=== PATIENT | female | born 1995 | race Two or more races ===

== ENCOUNTER 2023-02-17 06:21 | Inpatient (IN) | payer MEDICAID ==
[~2023-02-17] VITALS: Ht 160 cm; Wt 55.9 kg
[~2023-02-17 06:21] MED LIST: INSLANTI SC; INSLISPI SC
[2023-02-17] MEDS ORDERED: InsuLIN REG 1unit/0.01ml Soln (100units/ml) IV ONE (06:45)
[2023-02-17] MEDS ORDERED: SODIUM CHLORIDE 0.9% 2,000 ML IV ONE (06:45)
[2023-02-17 07:29] LABS: Hematocrit 36.9 % (36.0-46.0)
[2023-02-17 07:31] LABS: Hemoglobin 10.4 g/dL (12.2-16.2); Mean Corpuscular Hemoglobin 20.6 pg (28.0-32.0); Mean Corpuscular Hgb Conc. 28.3 g/dL (32.0-36.0); Red Blood Cells 5.06 10^6/uL (4.0-5.20); Red Cell Distribution Width 19.5 % (11.8-14.3); White Blood Cell 25.5 10^3/uL (4.4-10.8)
[2023-02-17 07:34] LABS: Band Neutrophils % (manual) 0; Basophils % (manual) 0 (0.0-2.0); Blast Cells 0; Eosinophils % (manual) 0 (0-7); Metamyelocytes % 0; Myelocytes % 0; Promyelocytes % 0; Reactive Lymphocytes 0
[2023-02-17 07:48] LABS: Alanine Aminotransferase 15 U/L (7-40); Alkaline Phosphatase 111 U/L (46-116); Anion Gap 27.00001 (5-15); Aspartate Aminotransferase 21 U/L (13-40); BUN/Creatinine Ratio 21.6 (10.0-20.0); Bilirubin, Total 0.3 mg/dL (0.2-1.0); Blood Urea Nitrogen 29 mg/dL (9-23); Calcium 10.6 mg/dL (8.5-10.1); Chloride 100 mmol/L (98-107); Potassium 4.8 mmol/L (3.5-5.1); Sodium 137 mmol/L (136-145); Total Protein 8.2 g/dL (5.7-8.2)
[2023-02-17 07:57] LABS: Carbon Dioxide < 10 mmol/L (20-30); Glucose 628 mg/dL (74-106)
[2023-02-17] MEDS: SODIUM CHLORIDE 0.9% 1,000 ML IV SCH ×7 (08:30→21:10)
[2023-02-17] MEDS: INSULIN DRIP 100 UNIT/100ML 100 ML IV SCH (08:30)
[2023-02-17] MEDS ORDERED: ONDANSETRON HCL 4 MG/2 ML VIAL IV ONE (08:30)
[2023-02-17] MEDS ORDERED: INSULIN LANTUS (GLARGINE) 1 /0.01ml (100units/ml) SC ONE (08:30)
[2023-02-17] MEDS ORDERED: DEXTROSE (50%) 50ML SYRG IV PRN ×2 (08:30→10:00)
[2023-02-17 08:48] LABS: Lymphocytes % (manual) 11 (10.0-50.0); Monocytes % (manual) 6 (0-12); Platelet Estimate Increased
[2023-02-17 08:50] LABS: Base Excess -21.2 mmol/L (-2.0-2.0)
[2023-02-17 09:00] LABS: Magnesium 2.4 mg/dL (1.6-2.6)
[2023-02-17 09:02] LABS: Phosphorus 6.7 mg/dL (2.4-5.1)
[2023-02-17] MEDS: ACCU-CHEK COMFORT CURVE STRIP VI SCH ×19 (09:19→22:31)
[2023-02-17 09:52] VITALS: PULSE 125; RESP 18; O2SAT 99
[2023-02-17] MEDS ORDERED: NITROGLYCERIN 0.4 MG SL TAB SL PRN (10:00)
[2023-02-17] MEDS ORDERED: HYDROcodone-ACET 5/325MG TAB PO PRN (10:00)
[2023-02-17] MEDS ORDERED: INSULIN DRIP 100 UNIT/100ML 100 ML IV SCH (10:00)
[2023-02-17] MEDS ORDERED: DOCUSATE SOD 100 MG CAP PO PRN (10:00)
[2023-02-17] MEDS ORDERED: MORPHINE SULFATE INJ 2 MG/ml SYRG IV PRN (10:00)
[2023-02-17] MEDS ORDERED: ACETAMINOPHEN 325 MG TAB PO PRN (10:00)
[2023-02-17] MEDS: D5W/SOD CHL 0.45%/KCL 20MEQ 1,000 ML IV SCH ×4 (10:57→23:31)
[2023-02-17] MEDS: ONDANSETRON HCL 4 MG/2 ML VIAL IV PRN ×3 (11:33→12:49)
[2023-02-17 12:29] LABS: Urine Bacteria FEW /hpf (None Seen); Urine Blood 3+ /uL (Negative); Urine Clarity HAZY (Clear); Urine Protein, UAD 1+ (Negative); Urine Specific Gravity 1.018 (1.001-1.035); Urine Urobilinogen Normal (Negative); Urine WBC 15 /hpf (0 - 5); Urine pH 5.5 (5.0-8.0)
[2023-02-17] MEDS ORDERED: SODIUM CHLORIDE 0.9% 1,000 ML IV SCH ×2 (12:30→14:00)
[2023-02-17 12:31] LABS: Urine Color Straw (Yellow)
[2023-02-17 14:46] LABS: Eosinophils # (auto) 0 10 ^3/uL (0-0.8); Hematocrit 32.2 % (36.0-46.0)
[2023-02-17 14:48] LABS: Anion Gap 12 (5-15); Carbon Dioxide 14 mmol/L (20-30); Potassium 4.4 mmol/L (3.5-5.1); Sodium 140 mmol/L (136-145)
[2023-02-17 14:49] LABS: Basophils # (auto) 0 10 ^3/uL (0-0.2); Basophils % (auto) 0.1 % (0.0-2.0); Calcium 8.8 mg/dL (8.7-10.4); Hemoglobin 9.1 g/dL (12.2-16.2); Lymphocytes # (auto) 2.3 10 ^3/uL (0.4-5.4); Lymphocytes % (auto) 8.5 % (10.0-50.0); Mean Corpuscular Hemoglobin 19.9 pg (28.0-32.0); Mean Corpuscular Hgb Conc. 28.2 g/dL (32.0-36.0); Mean Corpuscular Volume 70.8 fL (80.0-100.0); Monocytes # (auto) 0.9 10 ^3/uL (0-1.3); Monocytes % (auto) 3.3 % (0.0-12.0); Neutrophils # (auto) 23.9 10 ^3/uL (1.6-8.6); Neutrophils % (auto) 88.1 % (37.0-80.0); Red Blood Cells 4.55 10^6/uL (4.0-5.20); Red Cell Distribution Width 19.4 % (11.8-14.3); White Blood Cell 27.1 10^3/uL (4.4-10.8)
[2023-02-17 14:54] LABS: BUN/Creatinine Ratio 16.5 (10.0-20.0); Blood Urea Nitrogen 17 mg/dL (9-23); Glucose 322 mg/dL (74-106)
[2023-02-17 14:55] LABS: Chloride 114 mmol/L (98-107)
[2023-02-17] MEDS ORDERED: cefTRIAXone 1GM/50ML D5W 50 ML IV ONE (15:30)
[2023-02-17] MEDS ORDERED: PROMETHAZINE HCL 25 MG/ML 1ML IV ONE (18:00)
[2023-02-17 20:05] VITALS: PULSE 121; RESP 18; O2SAT 100
[2023-02-17 21:05] LABS: Chloride 115 mmol/L (98-107); Potassium 4.1 mmol/L (3.5-5.1); Sodium 141 mmol/L (136-145)
[2023-02-17 21:06] LABS: Anion Gap 12 (5-15); Calcium 8.7 mg/dL (8.5-10.1); Carbon Dioxide 14 mmol/L (20-30)
[2023-02-17 21:11] LABS: BUN/Creatinine Ratio 15.1 (10.0-20.0); Blood Urea Nitrogen 13 mg/dL (9-23); Glucose 254 mg/dL (74-106)
[2023-02-18] MEDS: ACCU-CHEK COMFORT CURVE STRIP VI SCH ×20 (00:08→23:53)
[2023-02-18] MEDS: ONDANSETRON HCL 4 MG/2 ML VIAL IV PRN (01:43)
[2023-02-18 02:40] LABS: Chloride 114 mmol/L (98-107); Potassium 3.6 mmol/L (3.5-5.1); Sodium 140 mmol/L (136-145)
[2023-02-18 02:41] LABS: Anion Gap 11 (5-15); Carbon Dioxide 15 mmol/L (20-30)
[2023-02-18 02:42] LABS: Calcium 8.2 mg/dL (8.7-10.4)
[2023-02-18 02:46] LABS: Blood Urea Nitrogen 13 mg/dL (9-23); Glucose 242 mg/dL (74-106)
[2023-02-18 02:47] LABS: BUN/Creatinine Ratio 16.7 (10.0-20.0)
[2023-02-18 04:31] LABS: Basophils # (auto) 0 10 ^3/uL (0-0.2); Basophils % (auto) 0.1 % (0.0-2.0); Eosinophils # (auto) 0 10 ^3/uL (0-0.8); Hemoglobin 7.6 g/dL (12.2-16.2); Monocytes # (auto) 1.3 10 ^3/uL (0-1.3)
[2023-02-18 04:34] LABS: Hematocrit 25.3 % (36.0-46.0); Lymphocytes # (auto) 1.5 10 ^3/uL (0.4-5.4); Lymphocytes % (auto) 7.2 % (10.0-50.0); Mean Corpuscular Hemoglobin 20.3 pg (28.0-32.0); Mean Corpuscular Hgb Conc. 30.1 g/dL (32.0-36.0); Mean Corpuscular Volume 67.5 fL (80.0-100.0); Monocytes % (auto) 6.2 % (0.0-12.0); Neutrophils # (auto) 18.6 10 ^3/uL (1.6-8.6); Neutrophils % (auto) 86.5 % (37.0-80.0); Red Blood Cells 3.75 10^6/uL (4.0-5.20); Red Cell Distribution Width 18.7 % (11.8-14.3); White Blood Cell 21.5 10^3/uL (4.4-10.8)
[2023-02-18] MEDS: SODIUM CHLORIDE 0.9% 1,000 ML IV SCH ×3 (04:52→11:56)
[2023-02-18 04:54] LABS: Albumin 3.8 g/dL (3.2-4.8); Alkaline Phosphatase 81 U/L (46-116); Anion Gap 9 (5-15); Aspartate Aminotransferase 12 U/L (13-40); BUN/Creatinine Ratio 16.9 (10.0-20.0); Bilirubin, Total 0.5 mg/dL (0.2-1.0); Blood Urea Nitrogen 12 mg/dL (9-23); Calcium 7.9 mg/dL (8.7-10.4); Carbon Dioxide 16 mmol/L (20-30); Chloride 114 mmol/L (98-107); Glucose 226 mg/dL (74-106); Potassium 3.6 mmol/L (3.5-5.1); Sodium 139 mmol/L (136-145); Total Protein 6.3 g/dL (5.7-8.2)
[2023-02-18] MEDS: D5W/SOD CHL 0.45%/KCL 20MEQ 1,000 ML IV SCH (05:08)
[2023-02-18 05:09] LABS: Alanine Aminotransferase < 9 U/L (7-40)
[2023-02-18 08:23] VITALS: PULSE 119; RESP 20; O2SAT 99
[2023-02-18 08:27] LABS: Hypochromia Marked; Platelet Estimate Adequate
[2023-02-18] MEDS: cefTRIAXone 1GM/50ML D5W 50 ML IV SCH (09:06)
[2023-02-18 09:15] LABS: Chloride 114 mmol/L (98-107); Potassium 3.4 mmol/L (3.5-5.1); Sodium 141 mmol/L (136-145)
[2023-02-18 09:16] LABS: Anion Gap 8 (5-15); Carbon Dioxide 19 mmol/L (20-30)
[2023-02-18 09:21] LABS: BUN/Creatinine Ratio 17.5 (10.0-20.0); Blood Urea Nitrogen 11 mg/dL (9-23); Glucose 174 mg/dL (74-106)
[2023-02-18] MEDS: INSULIN LANTUS (GLARGINE) 1 /0.01ml (100units/ml) SC SCH (10:00)
[2023-02-18] MEDS ORDERED: INSULIN LANTUS (GLARGINE) 1 /0.01ml (100units/ml) SC SCH (10:00)
[2023-02-18] MEDS ORDERED: DEXTROSE (50%) 50ML SYRG IV PRN (11:45)
[2023-02-18] MEDS: InsuLIN REG 1unit/0.01ml Soln (100units/ml) SC SCH ×4 (12:00→23:54)
[2023-02-18] MEDS: LACTATED RINGER'S 1,000 ML IV SCH ×2 (12:18→21:45)
[2023-02-18] MEDS: POTASSIUM CHL 20MEQ/100ML 100 ML IV SCH ×2 (12:23→14:05)
[2023-02-18] MEDS ORDERED: CLINDAMYCIN 600MG IV 50 ML IV ONE (14:00)
[2023-02-18 18:49] LABS: Rapid Strep A Screen-Throat Negative
[2023-02-18 19:30] VITALS: PULSE 113; RESP 17; O2SAT 98
[2023-02-18] MEDS: CLINDAMYCIN 600MG IV 50 ML IV SCH (22:22)
[2023-02-19] VITALS (7 sets, daily range): BP systolic 133–135; BP diastolic 90–91; PULSE 89–102; RESP 15–17; TEMP 36.9; O2SAT 97–99
[2023-02-19] MEDS: InsuLIN REG 1unit/0.01ml Soln (100units/ml) SC SCH ×4 (04:00→16:00)
[2023-02-19] MEDS: ACCU-CHEK COMFORT CURVE STRIP VI SCH ×4 (04:01→16:43)
[2023-02-19] MEDS: CLINDAMYCIN 600MG IV 50 ML IV SCH ×2 (05:41→14:30)
[2023-02-19] MEDS: LACTATED RINGER'S 1,000 ML IV SCH (06:59)
[2023-02-19] MEDS: cefTRIAXone 1GM/50ML D5W 50 ML IV SCH (09:18)
[2023-02-19] MEDS: INSULIN LANTUS (GLARGINE) 1 /0.01ml (100units/ml) SC SCH (09:28)
[2023-02-19 10:33] LABS: Basophils # (auto) 0.1 10 ^3/uL (0-0.2); Basophils % (auto) 0.6 % (0.0-2.0); Eosinophils # (auto) 0 10 ^3/uL (0-0.8); Eosinophils % (auto) 0.2 % (0.0-7.0); Hematocrit 26.1 % (36.0-46.0); Hemoglobin 7.9 g/dL (12.2-16.2); Lymphocytes % (auto) 19.1 % (10.0-50.0); Mean Corpuscular Hemoglobin 20.4 pg (28.0-32.0); Mean Corpuscular Hgb Conc. 30.1 g/dL (32.0-36.0); Mean Corpuscular Volume 67.6 fL (80.0-100.0); Monocytes # (auto) 0.7 10 ^3/uL (0-1.3); Monocytes % (auto) 6.3 % (0.0-12.0); Neutrophils # (auto) 7.7 10 ^3/uL (1.6-8.6); Neutrophils % (auto) 73.8 % (37.0-80.0); Red Blood Cells 3.86 10^6/uL (4.0-5.20); White Blood Cell 10.4 10^3/uL (4.4-10.8)
[2023-02-19 10:51] LABS: Chloride 109 mmol/L (98-107); Potassium 3.3 mmol/L (3.5-5.1); Sodium 140 mmol/L (136-145)
[2023-02-19 10:52] LABS: Anion Gap 9 (5-15); Carbon Dioxide 22 mmol/L (20-30)
[2023-02-19 10:53] LABS: INR 1.07 (0.9-1.15); Partial Thromboplastin Time 28.6 SEC (24.5-34.5); Prothrombin Time 11.2 sec (9.3-11.8)
[2023-02-19 10:57] LABS: Glucose 232 mg/dL (74-106)
[2023-02-19 10:58] LABS: Magnesium 1.6 mg/dL (1.6-2.6)
[2023-02-19 10:59] LABS: % Iron Saturation 7.5 % (15-50)
[2023-02-19 11:03] LABS: BUN/Creatinine Ratio 8.8 (10.0-20.0); Blood Urea Nitrogen < 5 mg/dL (9-23)
[2023-02-19] MEDS ORDERED: AUG875T PO (14:28)
[2023-02-19] MEDS ORDERED: FER325T PO (14:28)
[2023-02-19] MEDS ORDERED: INSLANTI SC (14:28)
[2023-02-19] MEDS ORDERED: POTASSIUM CHL 20 Meq TABLET PO ONE (14:30)
== END 2023-02-19 17:00 | disposition home or self-care (01) | DRG 420 ==
LOC: ER 06:21 → TELE 09:47 → TELE-WESTW 02-19 04:50
PROVIDERS: ADMIT Nurse Practitioner Family; ATTEND Internal Medicine
DX: E10.10 Type 1 diabetes mellitus with ketoacidosis without coma (principal); R65.11 Systemic inflammatory response syndrome (SIRS) of non-infectious origin with acute organ dysfunction; E86.0 Dehydration; K80.20 Calculus of gallbladder without cholecystitis without obstruction; D50.9 Iron deficiency anemia, unspecified; D75.839 Thrombocytosis, unspecified; J06.9 Acute upper respiratory infection, unspecified; Z20.822 Contact with and (suspected) exposure to COVID-19
CPT/HCPCS: 36415; 36600; 71045; 74176; 80048; 80053; 81001; 81025; 82010; 82805; 82962; 83036; 83540; 83550; 83735; 83930; 84100; 84484; 84702; 85007; 85025; 85027; 85610; 85730; 87040; 87070; 87880; 93005; 96365; 96372; 96375; 99291; G0378; J1815; J2405; J3480; J3490